=== PATIENT | male | born 1975 | race Caucasian/White ===

== ENCOUNTER 2022-09-23 12:22 | Emergency (ER) | payer SELFPAY ==
[2022-09-23 12:41] VITALS: BP 136/92; PULSE 107; RESP 22; TEMP 98.3
--- NOTE | 2022-09-23 15:55 | ED ---
General Adult HPI - General Chief complaint: Psychiatric Symptoms Stated complaint: Mental Health Time Seen by Provider: 09/23/22 12:30 Source: patient, EMS Mode of arrival: EMS Limitations: no limitations - History of Present Illness Initial comments: Warty 6-year-old male brought into the emergency department for anxiety and hallucinations. Patient is brought in by [facility]. It is unsure who called the police on the patient and he cannot provide any information. EMS stated that there was some pipes noted to be present upon pickup of the patient and therefore they do have concerns for drug use. Patient's is reportedly hallucinating. States that he "wants to be back on his medications that he can feel better". Patient not reportedly from the area. History is otherwise limited as the patient cannot provide any information - Related Data Home Medications Medication Instructions Recorded Confirmed FLUoxetine HCL [PROzac] 40 mg PO DAILY 09/23/22 09/23/22 Folic Acid 1 mg PO DAILY 09/23/22 09/23/22 Gabapentin [Neurontin] 1,200 mg PO TID 09/23/22 09/23/22 Ibuprofen [Motrin] 600 mg PO DAILY 09/23/22 09/23/22 Omeprazole 20 mg PO DAILY 09/23/22 09/23/22 busPIRone HCl [Buspar] 10 mg PO TID 09/23/22 09/23/22 hydrOXYzine HCL [Atarax] 50 mg PO TID PRN 09/23/22 09/23/22 lamoTRIgine [LaMICtal] 100 mg PO BID 09/23/22 09/23/22 tadalafiL [Cialis] 10 mg PO DAILY PRN 09/23/22 09/23/22 Allergies Allergy/AdvReac Type Severity Reaction Status Date / Time No Known Allergies Allergy Verified 09/23/22 19:15 Review of Systems ROS Statement: Those systems with pertinent positive or pertinent negative responses have been documented in the HPI. ROS Other: All systems not noted in ROS Statement are negative. Past Medical History Past Medical History: No Reported History History of Any Multi-Drug Resistant Organisms: Unobtainable Past Surgical History: No Surgical Hx Reported Past Psychological History: Unable to Obtain Smoking Status: Current some day smoker Past Alcohol Use History: Unable to Obtain Past Drug Use History: Unable to Obtain General Exam Limitations: altered mental status General appearance: alert, in no apparent distress Head exam: Present: atraumatic, normocephalic, normal inspection Eye exam: Present: normal appearance, PERRL, EOMI. Absent: scleral icterus, conjunctival injection, periorbital swelling ENT exam: Present: normal exam, mucous membranes moist Neck exam: Present: normal inspection. Absent: tenderness, meningismus, lymphadenopathy Respiratory exam: Present: normal lung sounds bilaterally. Absent: respiratory distress, wheezes, rales, rhonchi, stridor Cardiovascular Exam: Present: regular rate, normal rhythm, normal heart sounds. Absent: systolic murmur, diastolic murmur, rubs, gallop, clicks GI/Abdominal exam: Present: soft, normal bowel sounds. Absent: distended, tenderness, guarding, rebound, rigid Extremities exam: Present: normal inspection, full ROM, normal capillary refill. Absent: tenderness, pedal edema, joint swelling, calf tenderness Back exam: Present: normal inspection Neurological exam: Present: alert, oriented X3, CN II-XII intact Psychiatric exam: Present: anxious, flat affect Skin exam: Present: warm, dry, intact, normal color. Absent: rash Course Vital Signs 09/23/22 12:28 Temperature 98.3 F Pulse Rate 107 H Respiratory 22 Rate Blood Pressure 136/92 O2 Sat by Pulse 96 Oximetry Medical Decision Making - Medical Decision Making Was pt. sent in by a medical professional or institution ([facility], [facility], urgent care, hospital, or detention...) When possible be specific @ -No Did you speak to anyone other than the patient for history (EMS, parent, family, police, friend...)? What history was obtained from this source @ -EMS provide history Did you review nursing and triage notes (agree or disagree)? Why? @ -I reviewed and agree with nursing and triage notes Were old charts reviewed (outside hosp., previous admission, EMS record, old EKG, old radiological studies, urgent care reports/EKG's, detention records)? Report findings @ -No old charts were reviewed Differential Diagnosis (chest pain, altered mental status, abdominal pain women, abdominal pain men, vaginal bleeding, weakness, fever, dyspnea, syncope, headache, dizziness, GI bleed, back pain, seizure, CVA, palpatations, mental health, musculoskeletal)? @ -Differential Mental Health Depression, anxiety, bipolar, psychosis, schizophrenia, borderline personality, situational depression, adjustment disorder, behavioral disorder, brain tumor, malingering, substance abuse, encephalopathy, medication reaction, dementia, hypothyroidism, degenerative neurologic disorder, lupus.... This is not meant to be all-inclusive list EKG interpreted by me (3pts min.). @ -Not done X-rays interpreted by me (1pt min.). @ -None done CT interpreted by me (1pt min.). @ -None done U/S interpreted by me (1pt. min.). @ -None done What testing was considered but not performed or refused? (CT, X-rays, U/S, labs)? Why? @ -None What meds were considered but not given or refused? Why? @ -None Did you discuss the management of the patient with other professionals (professionals i.e. , PA, [employer] W[employer]ER, lab, RT, psych nurse, criminal justice social worker, maintenance department technician, teacher, motorcycle police officer, housing case manager)? Give summary @ -Discussed care with EPS nurse Was smoking cessation discussed for >3mins.? @ -No Was critical care preformed (if so, how long)? @ -No Were there social determinants of health that impacted care today? How? (Homelessness, low income, unemployed, alcoholism, drug addiction, transportation, low edu. Level, literacy, decrease access to med. care, intermediate, rehab)? @ -Drug addiction and therefore patient cannot provide history Was there de-escalation of care discussed even if they declined (Discuss DNR or withdrawal of care, Hospice)? DNR status @ -No What co-morbidities impacted this encounter? (DM, HTN, Smoking, COPD, CAD, Cancer, CVA, ARF, Chemo, Hep., AIDS, mental health diagnosis, sleep apnea, morbid obesity)? @ -None Was patient admitted / discharged? Hospital course, mention meds given and route, prescriptions, significant lab abnormalities, going to OR and other pertinent info. @ -Upon arrival patient is placed into room 14. I did attempt to obtain a history on the patient however he cannot provide much information. Urine is collected. EPS does evaluate the patient. They are able to make contact with the patient's mother. She is agreeable to come picking the patient up. States that he is scheduled to attend rehab later this week. Patient has sobered up from his drug use and is able to provide a better history. He denies suicidal or homicidal ideations. Like to go home at this time in order to attend rehab. Mother does present to the emergency department and takes patient home in stable condition Undiagnosed new problem with uncertain prognosis? @ -Yes Drug Therapy requiring intensive monitoring for toxicity (Heparin, Nitro, Insulin, Cardizem)? @ -No Were any procedures done? @ -No Diagnosis/symptom? @ -Acute and cephalopathy, polysubstance abuse Acute, or Chronic, or Acute on Chronic? @ -Acute Uncomplicated (without systemic symptoms) or Complicated (systemic symptoms)? @ -complicated Side effects of treatment? @ -No Exacerbation, Progression, or Severe Exacerbation? @ -No Poses a threat to life or bodily function? How? (Chest pain, USA, PR, pneumonia, PE, COPD, DKA, ARF, appy, cholecystitis, CVA, Diverticulitis, Homicidal, Suicidal, threat to staff... and all critical care pts) @ -No - Lab Data Lab Results 09/23/22 Range/Units 17:12 Urine Color Yellow Urine Appearance Cloudy (Clear) Urine pH 6.0 (5.0-8.0) Ur Specific [place] 1.027 (1.001-1.035) Urine Protein 2+ H (Negative) Urine Glucose (UA) 1+ H (Negative) Urine Ketones 2+ H (Negative) Urine Blood Negative (Negative) Urine Nitrite Negative (Negative) Urine Bilirubin Negative (Negative) Urine Urobilinogen 3.0 (<2.0) mg/dL Ur Leukocyte Esterase Negative (Negative) Urine RBC 3 (0-5) /hpf Urine WBC 4 (0-5) /hpf Calcium Oxalate Crystal Few H (None) /hpf Urine Mucus Many H (None) /hpf Urine Opiates Screen Not Detected (NotDetected) Ur Oxycodone Screen Not Detected (NotDetected) Urine Methadone Screen Not Detected (NotDetected) Ur Propoxyphene Screen Not Detected (NotDetected) Ur Barbiturates Screen Not Detected (NotDetected) U Tricyclic Antidepress Not Detected (NotDetected) Ur Phencyclidine Scrn Not Detected (NotDetected) Ur Amphetamines Screen Not Detected (NotDetected) U Methamphetamines Scrn Not Detected (NotDetected) U Benzodiazepines Scrn Detected H (NotDetected) Urine Cocaine Screen Detected H (NotDetected) U Marijuana (THC) Screen Not Detected (NotDetected) Disposition Clinical Impression: Depression Disposition: HOME SELF-CARE Condition: Stable Instructions (If sedation given, give patient instructions): Depression (ED) Is patient prescribed a controlled substance at d/c from ED?: No Referrals: None,Stated [Primary Care Provider] - 1-2 days Time of Disposition: 21:20
[2022-09-23 18:04] LABS: Appearance,Urine Cloudy (Clear); Bilirubin,Urine Negative (Negative); Blood,Urine Negative (Negative); Calcium Oxalate Crystals,Urine Few /hpf; Color,Urine Yellow; Glucose,Urine (UA) 1+ (Negative); Leukocyte Esterase,Urine Negative (Negative); Mucus,Urine Many /hpf; Nitrite,Urine Negative (Negative); Protein,Urine 2+ (Negative); RBC,Urine 3 /hpf (0-5); Specific Gravity,Urine 1.027 (1.001-1.035); WBC,Urine 4 /hpf (0-5)
[2022-09-23 18:06] LABS: Phencyclidine Screen,Urine Not Detected (NotDetected); Urn Cannabinoid Scrn Not Detected (NotDetected)
[2022-09-23 18:07] LABS: Amphetamine Screen,Urine Not Detected (NotDetected); Barbiturate Screen,Urine Not Detected (NotDetected); Benzodiazepines Screen,Urine Detected (NotDetected); Cocaine Screen,Urine Detected (NotDetected); Methadone Screen, Urine Not Detected (NotDetected); Opiate Screen,Urine Not Detected (NotDetected); Oxycodone Screen, Urine Not Detected (NotDetected); Tricyclic Antidepressant,Urine Not Detected (NotDetected)
[2022-09-23 18:29] LABS: Ketones,Urine 2+ (Negative)
== END 2022-09-23 22:00 | disposition home or self-care (01) ==
LOC: EDBD → EC 12:22
DX: F32.A Depression, unspecified (principal); F17.200 Nicotine dependence, unspecified, uncomplicated; F19.10 Other psychoactive substance abuse, uncomplicated
CPT/HCPCS: 80306; 81001; 82075; 99285

== ENCOUNTER 2023-05-01 15:59 | Emergency (ER) | payer OTHER ==
--- NOTE | 2023-05-01 16:46 | ED ---
General Adult HPI - General Chief complaint: Extremity Injury, Upper Stated complaint: right shoulder pain Time Seen by Provider: 05/01/23 16:46 Source: patient Mode of arrival: ambulatory Limitations: no limitations - History of Present Illness Initial comments: 47-year-old male presenting to the ED with a chief complaint of shoulder pain. Yesterday, slipped and fell onto his right shoulder/right side of his chest. Now notes pain of his right shoulder and the right side of his chest. No head injury at this time. No LOC. - Related Data Home Medications Medication Instructions Recorded Confirmed FLUoxetine HCL [PROzac] 40 mg PO DAILY 09/23/22 09/23/22 Folic Acid 1 mg PO DAILY 09/23/22 09/23/22 Gabapentin [Neurontin] 1,200 mg PO TID 09/23/22 09/23/22 Ibuprofen [Motrin] 600 mg PO DAILY 09/23/22 09/23/22 Omeprazole 20 mg PO DAILY 09/23/22 09/23/22 busPIRone HCl [Buspar] 10 mg PO TID 09/23/22 09/23/22 hydrOXYzine HCL [Atarax] 50 mg PO TID PRN 09/23/22 09/23/22 lamoTRIgine [LaMICtal] 100 mg PO BID 09/23/22 09/23/22 tadalafiL [Cialis] 10 mg PO DAILY PRN 09/23/22 09/23/22 Previous Rx's Medication Instructions Recorded HYDROcodone/APAP 7.5-325MG [[place] 1 tab PO Q6HR PRN 3 Days #12 tab 05/01/23 7.5-325] Allergies Allergy/AdvReac Type Severity Reaction Status Date / Time No Known Allergies Allergy Verified 09/23/22 19:15 Review of Systems ROS Statement: Those systems with pertinent positive or pertinent negative responses have been documented in the HPI. ROS Other: All systems not noted in ROS Statement are negative. Past Medical History Past Medical History: No Reported History History of Any Multi-Drug Resistant Organisms: Unobtainable Past Surgical History: No Surgical Hx Reported Past Psychological History: Unable to Obtain Smoking Status: Current some day smoker Past Alcohol Use History: Unable to Obtain Past Drug Use History: Unable to Obtain General Exam Limitations: no limitations Head exam: Present: atraumatic Neck exam: Present: normal inspection Respiratory exam: Present: normal lung sounds bilaterally Cardiovascular Exam: Present: regular rate, normal rhythm GI/Abdominal exam: Present: soft Extremities exam: Present: other (And sensation of the bilateral upper extremities equal and intact. Radial pulses 2+. Decreased range of motion of the right shoulder secondary to pain.) Neurological exam: Present: alert, oriented X3 Skin exam: Present: warm, dry Course Vital Signs 05/01/23 16:22 Temperature 97.5 F L Pulse Rate 99 Respiratory 18 Rate Blood Pressure 120/83 O2 Sat by Pulse 99 Oximetry Medical Decision Making - Medical Decision Making Was pt. sent in by a medical professional or institution (, PA, CONCRETE PAVEMENT INSTALLER, urgent care, hospital, or long term...) When possible be specific @ -No Did you speak to anyone other than the patient for history (EMS, parent, family, police, friend...)? What history was obtained from this source @ -No Did you review nursing and triage notes (agree or disagree)? Why? @ -I reviewed and agree with nursing and triage notes Were old charts reviewed (outside hosp., previous admission, EMS record, old EKG, old radiological studies, urgent care reports/EKG's, long term records)? Report findings @ -No old charts were reviewed Differential Diagnosis (chest pain, altered mental status, abdominal pain women, abdominal pain men, vaginal bleeding, weakness, fever, dyspnea, syncope, headache, dizziness, GI bleed, back pain, seizure, CVA, palpatations, mental health, musculoskeletal)? @ -Differential Musculoskeletal Muscular strain, contusion, ligament sprain, fracture, arthritis, septic arthritis, bursitis, cellulitis, muscle spasm, nerve compression, DVT, arterial occlusion, herpes zoster, electrolyte abnormality, tumor.... This is not meant to be in all inclusive list EKG interpreted by me (3pts min.). @ -As above X-rays interpreted by me (1pt min.). @ -X-Ray of the right shoulder shows grade 3 before meals separation. X-ray of the chest reveals no fracture or other acute process. Interpreted by me. CT interpreted by me (1pt min.). @ -None done U/S interpreted by me (1pt. min.). @ -None done What testing was considered but not performed or refused? (CT, X-rays, U/S, labs)? Why? @ -None What meds were considered but not given or refused? Why? @ -None Did you discuss the management of the patient with other professionals (professionals i.e. , PA, CONCRETE PAVEMENT INSTALLER, lab, RT, psych nurse, social security assessor, divorce lawyer, teacher, public affairs officer, upper caser)? Give summary @ -No Was smoking cessation discussed for >3mins.? @ -No Was critical care preformed (if so, how long)? @ -No Were there social determinants of health that impacted care today? How? (Homelessness, low income, unemployed, alcoholism, drug addiction, transportation, low edu. Level, literacy, decrease access to med. care, fci, rehab)? @ -No Was there de-escalation of care discussed even if they declined (Discuss DNR or withdrawal of care, Hospice)? DNR status @ -No What co-morbidities impacted this encounter? (DM, HTN, Smoking, COPD, CAD, Cancer, CVA, ARF, Chemo, Hep., AIDS, mental health diagnosis, sleep apnea, morbid obesity)? @ -None Was patient admitted / discharged? Hospital course, mention meds given and route, prescriptions, significant lab abnormalities, going to OR and other pertinent info. @ -Discharged 47-year-old male presents to the ED status post shoulder injury occurring yesterday after a mechanical fall. Imaging significant for grade 3 shoulder separation. Patient placed in sling and discharged home with prescription for [place] and referral to see orthopedics. Discharged home in stable condition. Discussed return precautions with patient who verbalizes agreement. Undiagnosed new problem with uncertain prognosis? @ -No Drug Therapy requiring intensive monitoring for toxicity (Heparin, Nitro, Insulin, Cardizem)? @ -No Were any procedures done? @ -No Diagnosis/symptom? @ -Grade 3 AC seperation Acute, or Chronic, or Acute on Chronic? @ -Acute Uncomplicated (without systemic symptoms) or Complicated (systemic symptoms)? @ -Uncomplicated Side effects of treatment? @ -No Exacerbation, Progression, or Severe Exacerbation? @ -No Poses a threat to life or bodily function? How? (Chest pain, USA, MD, pneumonia, PE, COPD, DKA, ARF, appy, cholecystitis, CVA, Diverticulitis, Homicidal, Suicidal, threat to staff... and all critical care pts) @ -No Disposition Clinical Impression: Shoulder separation Disposition: HOME SELF-CARE Condition: Good Additional Instructions: Please return to the Emergency Department if symptoms worsen or any other concerns. Follow up with orthopedics. Continue wearing shoulder sling. Prescriptions: HYDROcodone/APAP 7.5-325MG [[place] 7.5-325] 1 tab PO Q6HR PRN 3 Days #12 tab PRN Reason: Pain Is patient prescribed a controlled substance at d/c from ED?: Yes When asked, does pt state using other controlled substances?: No If prescribed controlled substance>3 days was MAPS reviewed?: Prescribed <3 Days Referrals: None,Stated [Primary Care Provider] - 1-2 days Reza Salazar DO [Doctor of Osteopathic Medicine] - 1-2 days Time of Disposition: 18:03
--- NOTE | 2023-05-01 17:31 | XR ---
EXAMINATION TYPE: XR shoulder complete RT DATE OF EXAM: 05/01/2023 COMPARISON: NONE HISTORY: Pain TECHNIQUE: Shoulder examined in 3 projections. FINDINGS: The humeral head articulates with the glenoid. There is complete separation of the acromioclavicular joint with separation greater than 1.4 cm. Ther e is depression of the acromion in relation to the distal clavicle findings are compatible with a gra de 3 separation. No acute fractures or dislocations are evident. A follow up study can be performed 7-10 days from acute trauma for continued pain. MRI can be perfor med if soft tissue evaluation would be of benefit. IMPRESSION: 1. No acute fractures within the right shoulder. 2. Grade 3 acromioclavicular joint separation.
--- NOTE | 2023-05-01 17:37 | XR ---
EXAMINATION TYPE: XR chest 2V DATE OF EXAM: 05/01/2023 COMPARISON: None INDICATION: Pain fall TECHNIQUE: Frontal and lateral views of the chest are obtained. FINDINGS: The heart size is normal. The pulmonary vasculature is normal. The lungs are clear. There is a grade 3 separation of the right acromioclavicular junction. IMPRESSION: 1. No acute pulmonary process. 2. Grade 3 right acromioclavicular junction separation
[2023-05-01] MEDS ORDERED: ACET/COD 300 MG/30 MG STARTER PACK 6 TAB BTL PO STA (17:55)
[2023-05-01] MEDS ORDERED: ONDANSETRON 4 MG ODT STARTER PACK 2 TAB BTL PO STA (17:55)
[2023-05-01 19:08] VITALS: BP 136/74; PULSE 84; RESP 16; TEMP 98.4
== END 2023-05-01 18:21 | disposition home or self-care (01) ==
LOC: EC 15:59
DX: S43.121A Dislocation of right acromioclavicular joint, 100%-200% displacement, initial encounter (principal); F17.200 Nicotine dependence, unspecified, uncomplicated; W01.0XXA Fall on same level from slipping, tripping and stumbling without subsequent striking against object, initial encounter
CPT/HCPCS: 73030; 71046; 99283; S0119

== ENCOUNTER → 2024-05-30 | Outpatient (CLI) | payer OTHER ==
--- NOTE | 2024-05-31 07:50 | MR ---
EXAMINATION TYPE: MR shoulder RT wo con DATE OF EXAM: 05/30/2024 4:07 PM COMPARISON: Right shoulder x-ray May 01, 2023 CLINICAL INDICATION: Male, 48 years old with history of M75.121 COMPLETE ROTATR-CUFF TEAR/RUPTR OF R SHOULD, Hx of RCR surgery, Rt shoulder pain, decreased range above motion post surgery IV Contrast: cc (None if empty) TECHNIQUE: Multiplanar, multisequence imaging of the right shoulder is performed without contrast. FINDINGS: Rotator Cuff: There is full-thickness retracted tears of the supraspinatus and infraspinatus tendons identified. Susceptibility artifact from surgical change laterally in the humeral head is noted. Some heterogeneity and increased signal in the intact supraspinatus tendon. There is at least mild-to-mod erate generalized atrophy of the supraspinatus and infraspinatus muscle bulk. Acromioclavicular Joint: There is superior displacement of the distal clavicle relative to the acromi on, this correlates with x-ray. Glenohumeral Joint: Moderate to large size joint effusion extending superiorly Labrum: The superior labrum is blunted and presumed torn. Biceps Tendon: The long head of biceps is not definitively identified. Bone marrow signal: No focal abnormal marrow signal is appreciated. Other: No additional significant abnormality is appreciated. IMPRESSION: Despite evidence of rotator cuff surgery there are full-thickness retracted tears of the supraspinatu s and infraspinatus tendon presumed recurrent tears with large superior glenohumeral joint effusion. [facility], , 05/31/2024 7:48 AM
== END | disposition home or self-care (01) ==
LOC: RADMRIMAIN 15:18
PROVIDERS: ATTEND Orthopaedic Surgery
DX: M75.121 Complete rotator cuff tear or rupture of right shoulder, not specified as traumatic (principal)

== ENCOUNTER → 2024-07-08 | Outpatient (CLI) | payer OTHER ==
--- NOTE | 2024-07-08 15:35 | CT ---
EXAMINATION TYPE: CT shoulder RT wo con DATE OF EXAM: 07/08/2024 12:15 PM COMPARISON: None. CLINICAL INDICATION: Male, 48 years old with history of [id number] recurrent rotator cuff tear, recurren t rotator cuff tear TECHNIQUE: Contrast used: mL of , (none if empty) Oral contrast used: (none if empty) Axial images at 1 mm thick sections. Reconstructed images in the coronal and sagittal planes. 3-D re constructed images performed on a separate computer by the technologist are reviewed. FINDINGS: No acute fractures are evident. Humeral head articulates with the glenoid. Joint space has mild narro wing. The scapula appears intact. There is some degenerative change at the acromioclavicular junction. Clav icle appears intact. No obvious rotator cuff tear identified. No large joint effusion is evident. No muscular retraction. There is narrowing of the acromiohumeral joint space suggesting chronic rotator cuff tear. IMPRESSION: 1. FINDINGS SUGGESTIVE FOR CHRONIC ROTATOR CUFF TEAR ON THE RIGHT. [facility], , 07/08/2024 3:32 PM
== END | disposition home or self-care (01) ==
LOC: RADCTMAIN 11:32
PROVIDERS: ATTEND Orthopaedic Surgery
DX: Z47.89 Encounter for other orthopedic aftercare (principal); M75.101 Unspecified rotator cuff tear or rupture of right shoulder, not specified as traumatic; M25.811 Other specified joint disorders, right shoulder